=== PATIENT | male | born 1975 | race Caucasian/White ===

== ENCOUNTER 2025-01-22 15:06 | Outpatient (CLI) | payer SELFPAY ==
[2025-01-22 13:00] LABS: INR 2.1 (0.9-1.1); Prothrombin Time 19.7 sec (9.1-11.1)
== END 2025-01-22 15:07 | disposition home or self-care (01) ==
LOC: LBO 15:07
PROVIDERS: Visit Provider Internal Medicine
DX: I26.99 Other pulmonary embolism without acute cor pulmonale (principal); I82.622 Acute embolism and thrombosis of deep veins of left upper extremity
CPT/HCPCS: 36415; 85610